=== PATIENT | female | born 1965 | race Hispanic/Latino ===

== ENCOUNTER → 2018-07-18 | Day surgery (SDC) | payer BC ==
[~2018-07-18] MED LIST: ACIDOPHILUS1 EAC4 PO; ALLERGY MEDICAT25 MG; ATORVASTATIN CA10 MG PO; CLARINEX-D 241 EACH PO; DAILY VITAMIN1 EAC3 PO; DEXAMETHASONE SOD PHOS 10 MG/1 ML VIAL ONE; FELDENE PO; FENTANYL CITRATE/PF 100MCG/2 ML INJ ONE; IOPAMIDOL 200 MG/ML 20 ML VIAL IT ONE; LIDOCAINE HCL 1% 30ML-PF VIAL ONE; MAGNESIUM500 MG PO; MIDAZOLAM HCL 2 MG/2 ML VIAL ONE; PHENYLEPHRINE HCL 1% 10 MG/ML VIAL ONE; PROPOFOL IV EMULSION 10 MG/ML 20 ML VIAL ONE; RED YEAST RICE600 MG PO; VITAMIN B-2100 MG PO
--- OUTSIDE RECORDS SUMMARY | 2018-07-18 05:26 | XMS REPORT | Clinical Summary ---
Author Author [facility] Organization [facility] Address Unknown Phone Unavailable Care Team Providers Care Government Auditor Name Role Phone Asked, No Pcp PCP Unavailable Allergies Active Allergy Reactions Severity Noted Date Comments Sulfa (Sulfonamide Rash Medium 04/05/2016 Antibiotics) Current Medications Prescription Sig. Disp. Refills Start End Date Status Date red yeast rice 600 mg Take 2 capsule(s) by oral Active capsule route with meals. SACCHAROMYCES BOULARDII Probiotic Active (PROBIOTIC, S.BOULARDII, ORAL) niacin 500 MG tablet Take 500 mg by mouth Active daily with breakfast. piroxicam (FELDENE) 20 MG piroxicam 20 mg capsule 30 capsule 0 04/12/20 Active capsuleIndications: 16 Sprain of anterior talofibular ligament of left ankle, subsequent encounter loratadine-pseudoepHEDrin Take 1 tablet by mouth Active e (CLARITIN-D 24-hour) daily. 10-240 mg per 24 hr tablet ibuprofen (ADVIL,MOTRIN) Take 800 mg by mouth Active 800 MG tablet every 6 (six) hours as needed for mild pain. diclofenac (VOLTAREN) 1 % Apply 2 g topically 4 Active gel (four) times a day. diclofenac (VOLTAREN) 1 % Apply topically 4 (four) 1 Tube 3 10/16/19 Active gel times a day. APPLY 2GR TO 18 AFFECTED AREA UP TO FOUR TIMES A DAY NEEDED FOR PAIN Active Problems Problem Noted Date Lateral epicondylitis of elbow 05/31/2016 Osteoarthritis of knee 04/12/2016 Rupture of anterior cruciate ligament 04/12/2016 Sprain of anterior talofibular ligament of left ankle 04/11/2016 Sprain of calcaneofibular ligament of left ankle 04/11/2016 Encounters Date Type Specialty Care Team Description 10/16/2017 Office Visit Ortho Sports Medicine Sean Horton, Degenerative arthritis of finger, right (Primary Dx) 10/08/2017 Office Visit Orthopedic Surgery Filipe Smith MD Trigger finger of right thumb (Primary Dx); Degenerative arthritis of finger, right after 07/17/2017 Family History Medical History Relation Name Comments Heart disease Father Diabetes Mother Hypertension Mother Relation Name Status Comments Father Alive Mother Alive Social History Tobacco Use Types Packs/Day Years Used Date Never Smoker Smokeless Tobacco: Never Used Alcohol Use Drinks/Week oz/Week Comments Yes SOCIALLY Sex Assigned at Date Recorded Not on file Last Filed Vital Signs Vital Sign Reading Time Taken Blood Pressure 127/84 10/16/2017 11:23 AM LAUNDRY ROUTEMAN Pulse 80 10/16/2017 11:23 AM LAUNDRY ROUTEMAN Temperature - - Respiratory Rate - - Oxygen Saturation - - Inhaled Oxygen - - Concentration Weight 69.9 kg (154 lb) 10/16/2017 11:23 AM LAUNDRY ROUTEMAN Height 149.9 cm (4' 11") 10/16/2017 11:23 AM LAUNDRY ROUTEMAN Body Mass Index 31.1 10/16/2017 11:23 AM LAUNDRY ROUTEMAN Plan of Treatment Health Maintenance Due Date Last Done Comments CERVICAL CANCER SCREENING 1984 BREAST CANCER SCREENING 2013 COLON CANCER SCREENING 2013 SHINGRIX VACCINE (#1) 2013 INFLUENZA VACCINE 04/24/2018 Procedures Procedure Name Priority Date/Time Associated Diagnosis Comments XR FINGER 2+ VW RIGHT Routine 10/16/2017 Pain of finger of right Results for this 11:33 AM LAUNDRY ROUTEMAN hand procedure are in the results section. NE INJECT TENDON Routine 10/08/2017 Trigger finger of right Results for this SHEATH/LIGAMENT 5:28 PM LAUNDRY ROUTEMAN thumb procedure are in the results section. after 07/17/2017 Results * XR Finger 2+ Vw Right (10/16/2017 11:33 AM) Narrative Performed At [facility] Xrays: The x-rays were ordered and personally reviewed by me. 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 Performing Organization Address City/State/Zipcode Phone Number [facility] [address] [place] [address] * Hand/Upper Extremity Injection/Arthrocentesis (10/08/2017 5:28 PM) Narrative Performed At Filipe Smith MD 10/08/20175:28 PM Hand/Upper Extremity Injection/Arthrocentesis Date/Time: 10/08/2017 3:12 PM Consent given by: patient Site marked: site marked Timeout: Immediately prior to procedure a time out was called to verify the correct patient, procedure, equipment, application support technician and site/side marked as required Supporting Documentation Indications: pain and therapeutic Procedure Details Condition: trigger finger Site: R thumb Location: - R thumb A1 Preparation: Patient was prepped and draped in the usual sterile fashion Right side: Right thumb medications administered: 40 mg methylPREDNISolone acetate 40 mg/mL; 1 mL lidocaine 10 mg/mL (1 %) Patient tolerance: patient tolerated the procedure well with no immediate complications Injection Type: tendon sheath after 07/17/2017 Insurance Payer Benefit Subscriber ID Type Phone Address Plan / Group BCBS BCBS xxxxxxxxxxxx PPO CHOICE PPO/BRAN BETTS PPO JORDANA DAWSON Personal/F Self 1965 Home: [id number] [address] [place] [address]
--- OUTSIDE RECORDS SUMMARY | 2018-07-18 05:26 | XMS REPORT | Clinical Summary ---
Author Author [facility] Address Unknown Phone Unavailable Care Team Providers Care Campus Administrative Assistant Name Role Phone PCP Unavailable Allergies Active Allergy Reactions Severity Noted Date Comments Sulfasalazine Rash Low 07/05/2017 Current Medications Prescription Sig. Disp. Refills Start End Date Status Date loratadine-pseudoephedrin Take 1 tablet by mouth Active e (CLARITIN-D 24-HOUR) daily. 10-240 mg per 24 hr tablet mometasone (NASONEX) 50 2 sprays by Nasal route Active mcg/actuation nasal spray daily. omeprazole (PRILOSEC) 40 Take 40 mg by mouth Active MG capsule daily. AMOXICILLIN/POTASSIUM Take 1 capsule by mouth 2 Active CLAV (AUGMENTIN ORAL) (two) times daily. Active Problems Not on file Encounters Date Type Specialty Care Team Description 09/12/2017 [facility] Angela Pastor Encounter MD Frankie 09/12/2017 Anesthesia Mary Avila, HYPERION ADMINISTRATOR Event 09/12/2017 Procedure Pass 09/12/2017 Surgery Angela Pastor MD ENDOSCOPY,POLYPECTOMY after 07/17/2017 Social History Tobacco Use Types Packs/Day Years Used Date Never Smoker Smokeless Tobacco: Never Used Alcohol Use Drinks/Week oz/Week Comments Yes 14 Glasses of 8.4 wine Sex Assigned at Date Recorded Not on file Last Filed Vital Signs Vital Sign Reading Time Taken Blood Pressure 116/62 09/12/2017 10:30 AM HAND CANDLE MOLDER Pulse 69 09/12/2017 10:30 AM HAND CANDLE MOLDER Temperature 36.3 C (97.3 F) 09/12/2017 10:00 AM HAND CANDLE MOLDER Respiratory Rate 16 09/12/2017 7:38 AM HAND CANDLE MOLDER Oxygen Saturation 97% 09/12/2017 10:30 AM HAND CANDLE MOLDER Inhaled Oxygen - - Concentration Weight 70.3 kg (154 lb 14.4 oz) 09/12/2017 7:38 AM HAND CANDLE MOLDER Height 149.9 cm (4' 11") 09/12/2017 7:38 AM HAND CANDLE MOLDER Body Mass Index 31.29 09/12/2017 7:38 AM HAND CANDLE MOLDER Plan of Treatment Not on file Procedures Procedure Name Priority Date/Time Associated Diagnosis Comments UPPER 09/12/2017 Gastroesophageal reflux ENDOSCOPY,POLYPECTOMY 9:30 AM HAND CANDLE MOLDER disease, esophagitis presence not specified after 07/17/2017 Results * ANATOMIC PATHOLOGY SCANNED - SCAN (09/18/2017 10:31 AM) * REPORT OF PROCEDURE - ENDOSCOPY URL (09/12/2017 10:08 AM) after 07/17/2017
[2018-07-18 08:01] VITALS: BP 94/58
== END | disposition home or self-care (01) ==
LOC: OR 05:24
PROVIDERS: ATTEND Physical Medicine & Rehabilitation Pain Medicine
DX: M54.16 Radiculopathy, lumbar region (principal); M54.12 Radiculopathy, cervical region; R93.7 Abnormal findings on diagnostic imaging of other parts of musculoskeletal system; J30.2 Other seasonal allergic rhinitis; E78.00 Pure hypercholesterolemia, unspecified; Z88.2 Allergy status to sulfonamides; Z87.828 Personal history of other (healed) physical injury and trauma
CPT/HCPCS: 64483; 64484; 93005; J1100; J2001; J2250; J2370; J2704; Q9967; 77003

== ENCOUNTER → 2018-12-26 | Day surgery (SDC) | payer BC ==
[~2018-12-26] MED LIST changes: +AZELASTINE137 MCG/0.; -DEXAMETHASONE SOD PHOS 10 MG/1 ML VIAL ONE; +LEVOCETIRIZINE D5 MG PO; +LIDOCAINE HCL 2% LOCAL INJ 5 ML SDV VIAL INJ ONE; +MAGNESIUM250 MG PO; +NASONEX17 GM; +ONDANSETRON HCL INJ 2MG/ML 2ML 2 MG/ML VIAL ONE; -PHENYLEPHRINE HCL 1% 10 MG/ML VIAL ONE; +TRIAMCINOLONE ACET 40 MG/ML VIAL ONE; +VITAMIN B-121000 MC1 PO
--- OUTSIDE RECORDS SUMMARY | 2018-12-26 05:25 | XMS REPORT | Encounter Summary ---
Author Organization Unknown Address [address] [place] [address] Phone [phone] Reason for Visit sore throat; cough / congestion Instructions 1. Acute sinusitis cefuroxime axetil 250 mg tablet Medrol (Ricardo) 4 mg tablets in a dose pack 2. Sore throat symptom rapid strep group A, throat 3. Body mass index 30+ - obesity body mass index: care instructions learning about healthy weight Discussion Note: None recorded. Plan of Care Reminders Provider Appointments None recorded. Lab Rapid Strep Group a, Throat 11/12/2018 [facility] ([facility]) [facility] Referral None recorded. Procedures None recorded. Surgeries None recorded. Imaging None recorded. Medications Name Start Date atorvastatin 10 mg tablet TAKE ONE TABLET BY MOUTH ONE TIME DAILY azelastine 137 mcg (0.1 %) nasal spray aerosol cefuroxime axetil 250 mg tablet Take 1 tablet every 12 hours by oral route for 10 days. levocetirizine 5 mg tablet TAKE ONE TABLET BY MOUTH ONE TIME DAILY Medrol (Ricardo) 4 mg tablets in a dose pack Take as directed per instructions in pack mometasone 50 mcg/actuation nasal spray omeprazole 40 mg capsule,delayed release Medications Administered None recorded. Vitals Height Weight BMI Blood Pressure 4 ft 11 in 157 lbs 31.7 kg/m2 117/70 mm[Hg] Lab Results Date Name Specimen Result Interpretation Description Value Range Status Address Rapid Strep Group a, Throat Strep negative [facility] ([facility]) [facility]: [address] [place] [address] Allergies Code Code System Name Reaction Severity Status Onset Sulfa (Sulfonamide Antibiotics) Active 08/07/2014 Problems Name Status Onset Date Source Migraine without Aura, Not Refractory Active 08/05/2015 History Hypercholesterolemia Active 09/15/2015 History Gastroesophageal Reflux Disease without Esophagitis Active 08/28/2016 Obesity Active 02/06/2018 Procedures Date Name Performed by 08/24/2018 Release of Trigger Thumb Information not available 06/24/2017 Foot/toes Surgery Procedure Information not available 09/24/2016 Egd Information not available 09/24/2015 Colonoscopy Information not available 09/24/2015 Egd Information not available 09/24/2014 Cholecystectomy (Gall Bladder Removal) Information not available 09/24/2000 Tonsillectomy Information not available 09/24/2000 ENT Surgery (Ear, Nose, Throat) Information not available 09/24/1998 Caesarean Section Information not available 09/24/1991 Cancer Surgery Information not available 09/24/1991 Orthopedic Surgery Information not available Vaccine List Vaccine Type influenza, injectable, quadrivalent 08/07/20140.5 mL influenza, injectable, quadrivalent, preservative free 08/28/20160.5 mL influenza, seasonal, injectable, preservative free 08/05/20151 mL Tdap 04/07/2015 Social History Smoking Status Never Smoker Past Encounters 11/12/2018 Acute Sinusitis; Sore Throat Symptom; Body Mass Index 30+ - Obesity Geo Castillo MD: [address] [facility] [address], [address], [place] [address], Ph. History of Present Illness Note:Here for ST and pain to swallow x 1 week, R>L sided. Having some sinus symptoms as well with PND. No fever/chills. No flu symptoms. Review of Systems Comprehensive General Adult ROS, Comprehensive Adult Problem ROS Reported By: Patient Constitutional: Constitutional: no fever, no night sweats Eyes: Eyes: no eye redness, no eye discharge ENMT: Ears: no ear pain, sinus pressure, congestion. Nose: sinus problems; post- nasal drainage. Mouth/Throat: sore throat Respiratory: Respiratory: no cough, no wheezing. Respiratory: no chest tightness, no pain with respiration Gastrointestinal: GI: no nausea Musculoskeletal: Musculoskeletal: no myalgia Integumentary: Skin: no rashes Hematologic/Lymphatic: Hematologic/Lymphatic no swollen glands Allergic/Immunologic: Allergy/Immunologic: runny nose Physical Exam Upper Respiratory Infection Exam Comprehensive Reported By: Patient Constitutional: General Appearance in no acute distress Head: Sinuses no tenderness Eyes: Pupils PERRLA, conjunctiva non-injected Ears: Right External auditory canal normal appearance. Left External auditory canal normal appearance. Right Tympanic membrane pearly dalton, landmarks clear. Left Tympanic membrane: pearly dalton, landmarks clear Nose: Nasal Skin: no lesion. Nasal Mucosa normal Oral Cavity/Mouth: Lips, teeth, gums normal lips. Oral Mucosa: normal. Palate: normal hard palate, normal soft palate. Tongue: normal tongue. Tonsils: normal tonsils, no lesions. Posterior pharynx: normal Lymph Nodes: Cervical no palpable lymph node enlargement Neck: Neck symmetrical Lungs: Respiratory effort unlabored; no cough. Auscultation breath sounds normal, no wheezing, no rales / crackles Cardiovascular System: Auscultation regular rate and rhythm
--- OUTSIDE RECORDS SUMMARY | 2018-12-26 05:25 | XMS REPORT | Clinical Summary ---
Author Author [facility] Address Unknown Phone Unavailable Care Team Providers Care X Ray Tech Name Role Phone Asked, No Pcp PCP Unavailable Allergies Comments Active Allergy Reactions Severity Noted Date Peanut Rash Low 09/13/2018 Sulfa (Sulfonamide Rash Medium 04/05/2016 Antibiotics) Medications End Date Status Medication Sig Dispensed Refills Start Date Active SACCHAROMYCES BOULARDII Probiotic 0 (PROBIOTIC, S.BOULARDII, ORAL) Active diclofenac (VOLTAREN) 1 % Apply 2 g 0 gel topically 4 (four) times a day. Active diclofenac (VOLTAREN) 1 % Apply 1 Tube 3 gel topically 4 8 (four) times a day. APPLY 2GR TO AFFECTED AREA UP TO FOUR TIMES A DAY NEEDED FOR PAIN Active atorvastatin (LIPITOR) 10 Take 10 mg by 0 MG tablet mouth daily. Active azelastine (ASTELIN) 137 1 spray into 0 mcg (0.1 %) nasal spray each nostril 2 (two) times a day. Use in each nostril as directed Active traMADol (ULTRAM) 50 mg Take 50 mg by 0 tablet mouth every 6 (six) hours as needed for moderate pain. Active MAGNESIUM ORAL Take 500 mg 0 by mouth. Active cyanocobalamin, vitamin Take by 0 B-12, (VITAMIN B-12 ORAL) mouth. Active CALCIUM ORAL Take by 0 mouth. Active levocetirizine (XYZAL) 5 Take 5 mg by 0 MG tablet mouth every evening. Active omega-3 fatty acids (FISH Take by 0 OIL CONCENTRATE ORAL) mouth. 09/13/2018 Discontinued red yeast rice 600 mg Take 2 0 capsule capsule(s) by oral route with meals. 09/13/2018 Discontinued niacin 500 MG tablet Take 500 mg 0 by mouth daily with breakfast. 09/13/2018 Discontinued piroxicam (FELDENE) 20 MG piroxicam 20 30 capsule 0 capsuleIndications: mg capsule 6 Sprain of anterior talofibular ligament of left ankle, subsequent encounter 09/13/2018 Discontinued loratadine-pseudoepHEDrin Take 1 tablet 0 e (CLARITIN-D 24-hour) by mouth 10-240 mg per 24 hr daily. tablet 09/13/2018 Discontinued ibuprofen (ADVIL,MOTRIN) Take 800 mg 0 800 MG tablet by mouth every 6 (six) hours as needed for mild pain. 09/20/2018 Discontinued mometasone (NASONEX) 50 2 sprays into 0 mcg/actuation nasal spray each nostril daily. 10/11/2018 Discontinued doxycycline (VIBRAMYCIN) Take 1 10 capsule 0 100 MG capsule capsule (100 9 mg total) by mouth 2 (two) times a day for 5 days. 10/16/2018 doxycycline (VIBRAMYCIN) Take 1 10 capsule 0 100 MG capsule capsule (100 9 mg total) by mouth 2 (two) times a day for 5 days. Active Problems Problem Noted Date Trigger thumb of right hand 08/29/2018 Lateral epicondylitis of elbow 05/31/2016 Osteoarthritis of knee 04/12/2016 Rupture of anterior cruciate ligament 04/12/2016 Sprain of anterior talofibular ligament of left ankle 04/11/2016 Sprain of calcaneofibular ligament of left ankle 04/11/2016 Encounters Care Team Description Date Type Specialty Cristina Orr MD Trigger thumb of right hand (Primary Dx) 11/07/2018 Office Visit Orthopedic Surgery Cristina Orr MD Trigger thumb of right hand (Primary Dx) 10/11/2018 Office Visit Orthopedic Surgery Cristina Orr MD Trigger thumb of right hand (Primary Dx) 10/03/2018 Office Visit Orthopedic Surgery Cristina Orr MD RIGHT TRIGGER THUMB RELEASE 09/20/2018 Surgery Orthopedic Surgery Sonya Bradford, ASSAYER 09/20/2018 Anesthesia Orthopedic Surgery Event Cristina Orr MD 09/20/2018 Hospital Orthopedic Surgery Encounter Cristina Orr MD 09/13/2018 Pre-Admit Pre-Admission Testing Testing Appointment Cristina Orr MD Trigger thumb of right hand (Primary Dx) 08/29/2018 Office Visit Orthopedic Surgery after 12/25/2017 Family History Medical History Relation Name Comments Heart disease Father Diabetes Mother Hypertension Mother Relation Name Status Comments Father Alive Mother Alive Social History Date Tobacco Use Types Packs/Day Years Used Never Smoker Smokeless Tobacco: Never Used Alcohol Use Drinks/Week oz/Week Comments Yes 7 Glasses of 4.2 SOCIALLY wine Sex Assigned at Date Recorded Not on file Industry Job Start Date Occupation Not on file Not on file Not on file Travel End Travel History Travel Start No recent travel history available. Last Filed Vital Signs Time Taken Vital Sign Reading 09/20/2018 10:07 AM GRAPHITE GRINDER Blood Pressure 122/56 09/20/2018 10:07 AM GRAPHITE GRINDER Pulse 74 09/20/2018 10:07 AM GRAPHITE GRINDER Temperature 36.7 C (98.1 F) 09/20/2018 10:07 AM GRAPHITE GRINDER Respiratory Rate 16 09/20/2018 10:07 AM GRAPHITE GRINDER Oxygen Saturation 98% - Inhaled Oxygen - Concentration 09/20/2018 7:27 AM GRAPHITE GRINDER Weight 70.7 kg (155 lb 12.8 oz) 09/20/2018 7:27 AM GRAPHITE GRINDER Height 149.9 cm (4' 11") 09/20/2018 7:27 AM GRAPHITE GRINDER Body Mass Index 31.47 Plan of Treatment Health Maintenance Due Date Last Done Comments CERVICAL CANCER SCREENING 1984 BREAST CANCER SCREENING 2013 COLON CANCER SCREENING 2013 SHINGLES VACCINES (#1) 2013 INFLUENZA VACCINE 04/24/2019 Procedures Comments Procedure Name Priority Date/Time Associated Diagnosis RELEASE, TRIGGER FINGER 09/20/2018 Trigger thumb of right 8:30 AM GRAPHITE GRINDER hand Special Needs EST 1HR DC AN ELECTIVE Routine 09/20/2018 SUPRAGLOTTIC AIRWAY 8:29 AM GRAPHITE GRINDER Procedure Note - Sundar Castaneda CRNA - 09/20/2018 8:29 AM GRAPHITE GRINDER Airway Date/Time: 09/20/2018 8:19 AM Performed by: Sundar Castaneda CRNA Authorized by: Anabelle Stephenson MD Location: OR Urgency: Elective Difficult Airway: No Anesthesio logist: Anabelle Stephenson MD Resident/C RNA/AA: Sundar Castaneda CRNA Performed by: resident/C RNA/AA Preoxygena william with 100% O2: Yes Mask Ventilatio n: Easy mask Final Airway Type: Supraglott ic airway Final LMA: I-Gel LMA Size: 4 Number of Attempts at Approach: 1 XR FINGER 2+ VW RIGHT Routine 08/29/2018 Pain of right thumb 9:33 AM GRAPHITE GRINDER after 12/25/2017 Results * XR Finger 2+ Vw Right (08/29/2018 9:33 AM GRAPHITE GRINDER) Narrative Performed At [facility] 3 view of right thumb shows arthritic changes of the DIPJ, MCPJ, and CMC joint, no evidence of acute fracture/dislocation. Performing Organization Address [facility] Phone Number [facility] [address] [place] [address] after 12/25/2017 Insurance Payer Benefit Subscriber ID Type Phone Address Plan / Group BCBS BCBS xxxxxxxxxxxx PPO CHOICE PPO/BRAN BETTS PPO Advance Directives Patient has advance care planning documents on file. For more information, kristie schilling contact: Cain Jerry [address] [place] [address]
--- OUTSIDE RECORDS SUMMARY | 2018-12-26 05:25 | XMS REPORT | Clinical Summary ---
Author Author [facility] Address Unknown Phone Unavailable Care Team Providers Care Painting And Coating Worker Name Role Phone Geo Castillo MD PCP Unavailable Allergies Comments Active Allergy Reactions Severity Noted Date Sulfasalazine Rash Low 07/05/2017 Medications End Date Status Medication Sig Dispensed Refills Start Date Active atorvastatin (LIPITOR) 10 Take 10 mg by 0 MG tablet mouth daily. Active magnesium 30 mg tablet Take 30 mg by 0 mouth 2 (two) times daily. Active Lactobac no.41/Bifidobact Take by 0 no.7 (PROBIOTIC-10 ORAL) mouth. Active cyanocobalamin (VITAMIN Take 100 mcg 0 B-12) 100 MCG tablet by mouth daily. Active calcium carbonate-vitamin Take 1 tablet 0 D3 (CALCIUM-VITAMIN D) by mouth 2 500 mg(1,250mg) -200 unit (two) times per tablet daily with breakfast and dinner. 08/29/2018 Discontinued loratadine-pseudoephedrin Take 1 tablet 0 e (CLARITIN-D 24-HOUR) by mouth 10-240 mg per 24 hr daily. tablet 08/29/2018 Discontinued mometasone (NASONEX) 50 2 sprays by 0 mcg/actuation nasal spray Nasal route daily. 08/29/2018 Discontinued omeprazole (PRILOSEC) 40 Take 40 mg by 0 MG capsule mouth daily. 08/29/2018 Discontinued AMOXICILLIN/POTASSIUM Take 1 0 CLAV (AUGMENTIN ORAL) capsule by mouth 2 (two) times daily. Active Problems Not on file Encounters Care Team Description Date Type Specialty Tara Geller CRNA 09/04/2018 Anesthesia Event Pricilla Martinez MD UPPER ENDOSCOPY,DILATATION 09/04/2018 Surgery Pricilla Martinez MD 09/04/2018 Hospital Encounter Resource, [facility] Phone 08/29/2018 Hospital Pre-Admission Testing Encounter after 12/25/2017 Social History Date Tobacco Use Types Packs/Day [...] Vital Signs Time Taken Vital Sign Reading 09/04/2018 11:35 AM CONSTRUCTION STONEMASON Blood Pressure 101/70 09/04/2018 11:35 AM CONSTRUCTION STONEMASON Pulse 66 09/04/2018 11:35 AM CONSTRUCTION STONEMASON Temperature 36.7 C (98 F) 09/04/2018 11:35 AM CONSTRUCTION STONEMASON Respiratory Rate 12 09/04/2018 11:35 AM CONSTRUCTION STONEMASON Oxygen Saturation 99% - Inhaled Oxygen - Concentration 09/04/2018 10:59 AM CONSTRUCTION STONEMASON Weight 71.3 kg (157 lb 3.2 oz) 08/29/2018 3:50 PM CONSTRUCTION STONEMASON Height 149.9 cm (4' 11") 09/04/2018 10:59 AM CONSTRUCTION STONEMASON Body Mass Index 31.75 Plan of Treatment Not on file Procedures Comments Procedure Name Priority Date/Time Associated Diagnosis REPORT OF PROCEDURE - 09/04/2018 ENDOSCOPY URL 11:40 AM CONSTRUCTION STONEMASON UPPER 09/04/2018 Gastroesophageal reflux ENDOSCOPY,DILATATION 11:00 AM CONSTRUCTION STONEMASON disease, esophagitis presence not specified Dysphagia, unspecified type UPPER ENDOSCOPY 09/04/2018 Gastroesophageal reflux 11:00 AM CONSTRUCTION STONEMASON disease, esophagitis presence not specified Dysphagia, unspecified type after 12/25/2017 Results * REPORT OF PROCEDURE - ENDOSCOPY URL (09/04/2018 11:40 AM CONSTRUCTION STONEMASON) Narrative Performed At after 12/25/2017 Insurance Payer Benefit Subscriber ID Type Phone Address Plan / Group BLUE CROSS/BLUE SHIELD BCBS PPO xxxxxxxxxxxx PPO [phone] [address] [place] [address] CHOICE
[2018-12-26 07:10] VITALS: BP 109/78
== END | disposition home or self-care (01) ==
LOC: OR 05:23
PROVIDERS: ATTEND Physical Medicine & Rehabilitation Pain Medicine
DX: M47.896 Other spondylosis, lumbar region (principal); Z88.2 Allergy status to sulfonamides; Z91.010 Allergy to peanuts; M54.16 Radiculopathy, lumbar region
CPT/HCPCS: 64493; 64494; 64495; J2001 ×2; J2250; J2405; J2704; J3301; Q9967; 77003

== ENCOUNTER → 2020-09-23 | Outpatient (CLI) | payer OTHER ==
[~2020-09-23] MED LIST changes: +COVID-19 VACC, MRNA(MODERNA)/PF 100 MCG/0.5 ML VIAL IM ONE; -FENTANYL CITRATE/PF 100MCG/2 ML INJ ONE; -IOPAMIDOL 200 MG/ML 20 ML VIAL IT ONE; -LIDOCAINE HCL 1% 30ML-PF VIAL ONE; -LIDOCAINE HCL 2% LOCAL INJ 5 ML SDV VIAL INJ ONE; -MIDAZOLAM HCL 2 MG/2 ML VIAL ONE; -ONDANSETRON HCL INJ 2MG/ML 2ML 2 MG/ML VIAL ONE; -PROPOFOL IV EMULSION 10 MG/ML 20 ML VIAL ONE; -TRIAMCINOLONE ACET 40 MG/ML VIAL ONE
== END ==
LOC: VACCPMC 06:30
DX: Z23 Encounter for immunization (principal); Z20.828 Contact with and (suspected) exposure to other viral communicable diseases

== ENCOUNTER → 2020-10-26 | Outpatient (CLI) | payer OTHER | END | DRG 951 | LOC: VACCPMC 10:15 | DX: Z23 Encounter for immunization (principal); Z20.822 Contact with and (suspected) exposure to COVID-19 | CPT/HCPCS: 0012A; 91301 ==